=== PATIENT | female | born 1960 | race Caucasian/White ===

== ENCOUNTER 2024-02-26 17:01 | Emergency (ER) | payer MEDICAID ==
[~2024-02-26] VITALS: Ht 154.9 cm; Wt 72.0 kg
[2024-02-26 17:06] VITALS: BP 138/87; PULSE 60; RESP 18; TEMP 97.9; O2SAT 100
== END 2024-02-26 20:28 | disposition left against medical advice (07) ==
LOC: ER 17:01
DX: M25.511 Pain in right shoulder (principal); Z53.21 Procedure and treatment not carried out due to patient leaving prior to being seen by health care provider

== ENCOUNTER 2024-02-27 10:56 | Emergency (ER) | payer MEDICAID ==
[~2024-02-27] VITALS: Ht 157.5 cm; Wt 68.0 kg
[2024-02-27 11:01] VITALS: O2SAT 100
[2024-02-27] MEDS: ACETAMINOPHEN 325MG TABLET PO ONE (11:32)
[2024-02-27 14:13] VITALS: BP 116/56; PULSE 64; RESP 18; TEMP 98.4
== END 2024-02-27 14:16 | disposition home or self-care (01) ==
LOC: ER 10:56
DX: M25.511 Pain in right shoulder (principal); V49.9XXA Car occupant (driver) (passenger) injured in unspecified traffic accident, initial encounter; Y93.89 Activity, other specified; Y92.89 Other specified places as the place of occurrence of the external cause; Y99.8 Other external cause status
CPT/HCPCS: 73030; 99283